=== PATIENT | female | born 1975 | race Caucasian/White ===

== ENCOUNTER 2023-03-22 06:28 | Day surgery (SDC) | payer BC ==
[2023-03-22] MEDS ORDERED: Midazolam 1 MG/ML 2 ML SDV ONE (07:01)
[2023-03-22] MEDS ORDERED: fentaNYL 100 MCG/2 ML SDV ONE (07:02)
[2023-03-22] MEDS: Dextrose 5%-0.45% NaCl 1,000 ML IV SCH (07:10)
[2023-03-22] MEDS: fentaNYL 100 MCG/2 ML SDV IV ONE ×6 (07:29→07:42)
[2023-03-22] MEDS: Midazolam 1 MG/ML 2 ML SDV IV ONE ×6 (07:30→07:38)
== END 2023-03-22 09:08 | disposition home or self-care (01) ==
LOC: DL.ENDO 06:28
PROVIDERS: ATTEND Internal Medicine Gastroenterology
DX: Z12.11 Encounter for screening for malignant neoplasm of colon (principal); K57.30 Diverticulosis of large intestine without perforation or abscess without bleeding; E66.09 Other obesity due to excess calories; Z68.38 Body mass index [BMI] 38.0-38.9, adult; E83.119 Hemochromatosis, unspecified; F32.A Depression, unspecified
CPT/HCPCS: 81025; J2250; J3010; J7042